=== PATIENT | male | born 1995 | race Caucasian/White ===

== ENCOUNTER 2017-12-22 13:20 | Emergency (ER) | payer BC, OTHER ==
--- NOTE | 2017-12-22 13:41 | EDM.PDOC ---
ED HPI GENERAL MEDICAL PROBLEM - General Chief Complaint: General Stated Complaint: DIZZINESS Time Seen by Provider: 12/22/17 13:31 Source of Information: Reports: Patient History Limitations: Reports: No Limitations - History of Present Illness INITIAL COMMENTS - FREE TEXT/NARRATIVE: HISTORY AND PHYSICAL: History of present illness: Patient is a 21-year-old male who presents to the emergency room with complaints of headache and dizziness 2 days. Patient was seen yesterday at [facility] and did have routine labs drawn. During that time he had a syncopal event and didn't hit his head. He continued to work today and developed a headache and felt dizzy. Since arrival to our emergency room and out of the heat he states he does feel improved. Currently does not have a headache. Denies any fever, chills, chest pain, shortness of breath or cough. Denies any abdominal pain, nausea, vomiting, diarrhea or constipation. He has been eating and drinking appropriately. Denies any drug or alcohol abuse. Review of systems: As per history of present illness and below otherwise all systems reviewed and negative. Past medical history: As per history of present illness and as reviewed below otherwise noncontributory. Surgical history: As per history of present illness and as reviewed below otherwise noncontributory. Social history: No reported history of drug or alcohol abuse. Family history: As per history of present illness and as reviewed below otherwise noncontributory. Physical exam: General: Well-developed and well-nourished 21-year-old male. Alert and oriented. Nontoxic appearing and in no acute distress. HEENT: Atraumatic, normocephalic, pupils equal and reactive bilaterally, negative for conjunctival pallor or scleral icterus, mucous membranes moist, throat clear, neck supple, nontender, trachea midline. No drooling or trismus noted. No meningeal signs Lungs: Clear to auscultation, breath sounds equal bilaterally, chest nontender. Heart: S1S2, regular rate and rhythm without overt murmur Abdomen: Soft, nondistended, nontender. Negative for masses or hepatosplenomegaly. Negative for costovertebral tenderness. Pelvis: Stable nontender. Genitourinary: Deferred. Rectal: Deferred. Skin: Intact, warm, dry. No lesions or rashes noted. Extremities: Atraumatic, negative for cords or calf pain. Neurovascular unremarkable. Neuro: Awake, alert, oriented. Cranial nerves II through XII unremarkable. Cerebellum unremarkable. Motor and sensory unremarkable throughout. Exam nonfocal. Notes: Patient states that he has been talking with some family members who do work in the medical field and have requested that he receive a CT of his head. I did offer routine lab work along with IV fluids, which he declines. Head CT is within normal limits. This was shared with the patient. Supportive care measures reviewed and discussed. Denies any further questions. Diagnostics: Head CT Therapeutics: [] Impression: Head Injury Plan: 1. Please take the rest of the day to rest. Stay cool and increase your oral fluids. 2. Tylenol and ibuprofen as needed for pain management. 3. Follow up with your primary care provider in the next 1-2 days. Return to the ED as needed and as discussed. Definitive disposition and diagnosis as appropriate pending reevaluation and review of above. - Related Data Allergies Allergy/AdvReac Type Severity Reaction Status Date / Time No Known Allergies Allergy Verified 12/22/17 13:53 Home Meds: Home Meds . [No Known Home Meds] 12/22/17 [History] ED ROS GENERAL - Review of Systems Review Of Systems: ROS reveals no pertinent complaints other than HPI. ED EXAM, GENERAL - Physical Exam Exam: See Below (See dictation) Course - Vital Signs Last Recorded V/S: Last Vital Signs Temp 98.2 F 12/22/17 14:49 Pulse 63 12/22/17 14:49 Resp 16 12/22/17 14:49 BP 102/52 L 12/22/17 14:49 Pulse Ox 99 12/22/17 14:49 Orthostatic Blood Pressure [ 96/57 Standing] Orthostatic Blood Pressure [ 110/61 Sitting] Orthostatic Blood Pressure [ 111/55 Supine] - Orders/Labs/Meds Orders: Active Orders 24 hr Category Date Time Status Orthostatic Vital Signs [RC] ASDIRECTED Care 12/22/17 13:31 Active Head wo Cont [CT] Stat Exams 12/22/17 13:45 Taken Departure - Departure Time of Disposition: 14:58 Disposition: Home, Self-Care 01 Clinical Impression: Head injury Qualifiers: Encounter type: initial encounter Qualified Code(s): S09.90XA - Unspecified injury of head, initial encounter - Discharge Information Instructions: Head Injury, Adult, [id number] Referrals: PCP,None [Primary Care Provider] - Forms: ED Department Discharge Additional Instructions: The following information is given to patients seen in the emergency department who are being discharged to home. This information is to outline your options for follow-up care. We provide all patients seen in our emergency department with a follow-up referral. The need for follow-up, as well as the timing and circumstances, are variable depending upon the specifics of your emergency department visit. If you don't have a primary care physician on staff, we will provide you with a referral. We always advise you to contact your personal physician following an emergency department visit to inform them of the circumstance of the visit and for follow-up with them and/or the need for any referrals to a consulting specialist. The emergency department will also refer you to a specialist when appropriate. This referral assures that you have the opportunity for follow-up care with a specialist. All of these measure are taken in an effort to provide you with optimal care, which includes your follow-up. Under all circumstances we always encourage you to contact your private physician who remains a resource for coordinating your care. When calling for follow-up care, please make the office aware that this follow-up is from your recent emergency room visit. If for any reason you are refused follow-up, please contact the [facility] Emergency Department at and asked to speak to the emergency department charge nurse. [facility] [address] [place] [id number] 1. Please take the rest of the day to rest. Stay cool and increase your oral fluids. 2. Tylenol and ibuprofen as needed for pain management. 3. Follow up with your primary care provider in the next 1-2 days. Return to the ED as needed and as discussed. Care Plan Goals: The following information is given to patients seen in the emergency department who are being discharged to home. This information is to outline your options for follow-up care. We provide all patients seen in our emergency department with a follow-up referral. The need for follow-up, as well as the timing and circumstances, are variable depending upon the specifics of your emergency department visit. If you don't have a primary care physician on staff, we will provide you with a referral. We always advise you to contact your personal physician following an emergency department visit to inform them of the circumstance of the visit and for follow-up with them and/or the need for any referrals to a consulting specialist. The emergency department will also refer you to a specialist when appropriate. This referral assures that you have the opportunity for follow-up care with a specialist. All of these measure are taken in an effort to provide you with optimal care, which includes your follow-up. Under all circumstances we always encourage you to contact your private physician who remains a resource for coordinating your care. When calling for follow-up care, please make the office aware that this follow-up is from your recent emergency room visit. If for any reason you are refused follow-up, please contact the [facility] Emergency Department at and asked to speak to the emergency department charge nurse. [facility] [address] [place] [id number] 1. Please take the rest of the day to rest. Stay cool and increase your oral fluids. 2. Tylenol and ibuprofen as needed for pain management. 3. Follow up with your primary care provider in the next 1-2 days. Return to the ED as needed and as discussed. - My Orders Last 24 Hours: My Active Orders 12/22/17 13:31 Orthostatic Vital Signs [RC] ASDIRECTED 12/22/17 13:45 Head wo Cont [CT] Stat - Assessment/Plan Last 24 Hours: My Active Orders 12/22/17 13:31 Orthostatic Vital Signs [RC] ASDIRECTED 12/22/17 13:45 Head wo Cont [CT] Stat
--- NOTE | 2017-12-24 19:09 | CT ---
EXAM DATE: 12/22/17 PATIENT'S AGE: 21 Patient: LANA DE Facility: [place], [place] Site . Site : 1995 Study: CT Head [id number] 2:22:19 PM Ordering Physician: Doctor Sun Final Report: Indication: Passed out and hit head yesterday. Headaches and dizziness off and on since. 5- 10 minutes of confusion after fall. Technique: Multiaxial CT images of the head were obtained without contrast. Coronal and sagittal reformats were submitted. Comparison: No prior studies are available for comparison at this institution. Findings: The ventricles, sulci and gyri are of normal size, shape and contour. Midline structures are centrally located. No convincing evidence of intra- or extra- axial fluid collections. The calvarium and skull base are unremarkable, with normal aeration of the visualized petrous temporal bones and paranasal sinuses on both sides. Impression: No radiographic evidence of acute intracranial abnormality. Please note that all CT scans at this facility use dose modulation, iterative reconstruction, and/or weight-based dosing when appropriate to reduce radiation dose to as low as reasonably achievable. Dictated by Jacques Velazquez MD @ Dec 22 2017 2:50PM (Electronic Signature) Report Signed by Proxy. MAGUI
== END 2017-12-22 15:12 | disposition home or self-care (01) ==
LOC: MW.ED 13:20
DX: S09.90XA Unspecified injury of head, initial encounter (principal); X58.XXXA Exposure to other specified factors, initial encounter
CPT/HCPCS: 70450; 70450-26; 99283; 99284-25

== ENCOUNTER 2018-09-28 20:31 | Emergency (ER) | payer OTHER ==
[2018-09-28] MEDS ORDERED: Bacitracin Oint 1 GM U/D Packet TOP ONE (20:45)
[2018-09-28] MEDS ORDERED: Diphtheria,Pertussis(Acell),Tetanus Vaccine 0.5 ML Syringe IM ONE (20:45)
--- NOTE | 2018-09-28 20:51 | EDM.PDOC ---
ED HPI GENERAL MEDICAL PROBLEM - General Chief Complaint: Upper Extremity Injury/Pain Stated Complaint: PT CUT LT HAND Time Seen by Provider: 09/28/18 20:38 - History of Present Illness INITIAL COMMENTS - FREE TEXT/NARRATIVE: HISTORY AND PHYSICAL: History of present illness: The patient is a 22-year-old healthy male who presents after cutting his left thumb while cutting shrubs at home. He was in his usual state of good health when this occurred. He is right-hand dominant and has some scratches on his right hand that occurred prior to this event and he is not concerned about those. He denies any other injuries. The patient is unsure of his last tetanus shot. The patient says he did not hit or crushed the area with this injury Review of systems: As per history of present illness and below otherwise all systems reviewed and negative. Past medical history: As per history of present illness and as reviewed below otherwise noncontributory. Surgical history: As per history of present illness and as reviewed below otherwise noncontributory. Social history: No reported history of drug or alcohol abuse. Family history: As per history of present illness and as reviewed below otherwise noncontributory. Physical exam: General: Well-developed well-nourished man who is nontoxic and vital signs are noted by me HEENT: Atraumatic, normocephalic, negative for conjunctival pallor or scleral icterus, mucous membranes moist, throat clear, neck supple, nontender, trachea midline. Lungs: Clear to auscultation, breath sounds equal bilaterally, chest nontender. Heart: S1S2, regular rate and rhythm no overt murmurs Abdomen: Deferred. Pelvis: Deferred Genitourinary: Deferred. Rectal: Deferred. Extremities: Atraumatic with full range of motion of all extremities with the exception of the left hand where there is a 2 cm laceration at the MCP joint. There is no bony tenderness defects or deformity and the extensor tendon is intact against resistance. The wound is clean and linear and without any active bleeding., Neurovascular unremarkable. Neuro: Awake, alert, oriented. Cranial nerves II through XII unremarkable. Cerebellum unremarkable. Motor and sensory unremarkable throughout. Exam nonfocal. Diagnostics: none Therapeutics: Tdap, wound irrigation and wound care per nursing with dressing and bacitracin, lidocaine without epinephrine for suture repair Procedure note: After the wound was cleansed by nursing and lidocaine without epinephrine was infused in a local fashion the wound was prepped and draped and explored for foreign bodies. No foreign bodies were appreciated in the skin edges were reapproximated using a total number of #3 sutures of 4-0 Ethilon. The sutures were simple interrupted and there were no complications. The patient tolerated the procedure well and bacitracin and a dressing were placed by nursing. The procedure was performed by Maria R VALIENTE Impression: Left hand/thumb laceration Definitive disposition and diagnosis as appropriate pending reevaluation and review of above. Left Hand Pain Score (Numeric/FACES): 2 - Related Data Allergies Allergy/AdvReac Type Severity Reaction Status Date / Time No Known Allergies Allergy Verified 09/28/18 20:43 Home Meds: Home Meds . [No Known Home Meds] 12/22/17 [History] Past Medical History - Past Health History Medical/Surgical History: Denies Medical/Surgical History - Infectious Disease History Infectious Disease History: Reports: Chicken Pox Social & Family History - Family History Family Medical History: Noncontributory - Tobacco Use Smoking Status *Q: Former Smoker Used Tobacco, but Quit: Yes Month/Year Tobacco Last Used: 2016 - Caffeine Use Caffeine Use: Reports: Coffee, Energy Drinks, Soda - Recreational Drug Use Recreational Drug Use: No Review of Systems - Review of Systems Review Of Systems: ROS reveals no pertinent complaints other than HPI. ED EXAM, GENERAL - Physical Exam Exam: See Below (See dictation) Course - Vital Signs Last Recorded V/S: Last Vital Signs Temp 36.6 C 09/28/18 20:38 Pulse 83 09/28/18 20:38 Resp BP 114/67 09/28/18 20:38 Pulse Ox 95 09/28/18 20:38 - Orders/Labs/Meds Orders: Active Orders 24 hr Category Date Time Status Communication Order [RC] STAT Care 09/28/18 20:44 Active Vaccines to be Administered [RC] PER UNIT ROUTINE Care 09/28/18 20:45 Active Meds: Medications Discontinued Medications Generic Name Dose Route Start Last Admin Trade Name Freq PRN Reason Stop Dose Admin Bacitracin 1 dose 09/28/18 20:45 09/28/18 21:05 Bacitracin Oint 1 Gm TOP 09/28/18 20:46 1 dose ONETIME ONE Administration Diphtheria/Tetanus/Acell Pertussis 0.5 ml 09/28/18 20:45 09/28/18 21:06 Adacel IM 09/28/18 20:46 0.5 ml .ONCE ONE Administration Lidocaine HCl 5 ml 09/28/18 20:43 09/28/18 21:05 Xylocaine-Mpf 1% INJECT 09/28/18 20:44 5 ml ONETIME ONE Administration Departure - Departure Time of Disposition: 21:19 Disposition: Home, Self-Care 01 Condition: Good Clinical Impression: Laceration of left hand Qualifiers: Encounter type: initial encounter Foreign body presence: without foreign body Qualified Code(s): S61.412A - Laceration without foreign body of left hand, initial encounter - Discharge Information Referrals: PCP,None [Primary Care Provider] - Forms: ED Department Discharge Additional Instructions: The following information is given to patients seen in the emergency department who are being discharged to home. This information is to outline your options for follow-up care. We provide all patients seen in our emergency department with a follow-up referral. The need for follow-up, as well as the timing and circumstances, are variable depending upon the specifics of your emergency department visit. If you don't have a primary care physician on staff, we will provide you with a referral. We always advise you to contact your personal physician following an emergency department visit to inform them of the circumstance of the visit and for follow-up with them and/or the need for any referrals to a consulting specialist. The emergency department will also refer you to a specialist when appropriate. This referral assures that you have the opportunity for followup care with a specialist. All of these measure are taken in an effort to provide you with optimal care, which includes your followup. Under all circumstances we always encourage you to contact your private physician who remains a resource for coordinating your care. When calling for followup care, please make the office aware that this follow-up is from your recent emergency room visit. If for any reason you are refused follow-up, please contact the [facility] emergency department at and ask to speak to the emergency department charge nurse. [facility] Primary care- Internal Medicine and Family [address] [address] Leave the dressing that was placed on in the ER for the next 24 hours then remove and cleanse with mild soap and water pat dry and apply bacitracin or Neosporin. You should do this wound care at least twice a day. Do not use Band- Aids and only place a breathable dressing if you need to cover it otherwise keep it open to air. Stop the ointment after 2 days. Sutures should be removed in 7 days either here in the ED or with your provider in the clinic. Return to ER as needed and as discussed - My Orders Last 24 Hours: My Active Orders 09/28/18 20:44 Communication Order [RC] STAT 09/28/18 20:45 Vaccines to be Administered [RC] PER UNIT ROUTINE - Assessment/Plan Last 24 Hours: My Active Orders 09/28/18 20:44 Communication Order [RC] STAT 09/28/18 20:45 Vaccines to be Administered [RC] PER UNIT ROUTINE
== END 2018-09-28 21:32 | disposition home or self-care (01) ==
LOC: MW.ED 20:31
DX: S61.412A Laceration without foreign body of left hand, initial encounter (principal); W45.8XXA Other foreign body or object entering through skin, initial encounter; Y93.89 Activity, other specified; Y92.009 Unspecified place in unspecified non-institutional (private) residence as the place of occurrence of the external cause; Z23 Encounter for immunization; Z87.891 Personal history of nicotine dependence
CPT/HCPCS: 12001; 90471; 90715; 99282; J2001; 99283

== ENCOUNTER 2018-10-05 20:12 | Emergency (ER) | payer OTHER | END 2018-10-05 20:30 | disposition left against medical advice (07) | LOC: MW.ED 20:12 | DX: Z53.21 Procedure and treatment not carried out due to patient leaving prior to being seen by health care provider (principal) | CPT/HCPCS: 99281 ==